=== PATIENT | female | born 1940 | race Caucasian/White ===

== ENCOUNTER 2017-04-08 19:19 | Emergency (ER) | payer OTHER ==
[~2017-04-08] VITALS: Ht 157.5 cm; Wt 66.0 kg
[2017-04-08] MEDS ORDERED: ALPR0.2582 PO (19:51)
[2017-04-08] MEDS ORDERED: OLAN5TAB26 PO (19:53)
[2017-04-08] MEDS ORDERED: ALPR0.5T96 PO (19:53)
[2017-04-08 21:55] VITALS: BP 124/71
[2017-04-08] MEDS ORDERED: ACETAMINOPHEN 325MG TABLET PO ONE (22:15)
== END 2017-04-08 23:20 | disposition home or self-care (01) ==
LOC: ER 21:01
DX: S62.102A Fracture of unspecified carpal bone, left wrist, initial encounter for closed fracture (principal); W18.39XA Other fall on same level, initial encounter; Y93.01 Activity, walking, marching and hiking; Y99.9 Unspecified external cause status; Y92.89 Other specified places as the place of occurrence of the external cause; R51 Headache
CPT/HCPCS: 29125; 70450; 70486; 72125; 73090; 73130; 73562; 99284